=== PATIENT | female | born 1960 | race Caucasian/White ===

== ENCOUNTER → 2016-05-28 | Outpatient (CLI) | payer MEDICARE, MEDICAID ==
[~2016-05-28] MED LIST: ARTIFICIAL TEAR15 ML OPHTH; ATIVAN 1 MG1 MG PO; ATIVAN2 MG PO; CLARITIN10 MG PO; CLOZAPINE50 MG PO; DEPAKOTE DELAY500 MG PO; DILANTIN100 MG PO; DITROPAN DP5 MG/5 ML PO; DULCOLAX10 MG R; EAR DROPS15 ML OTIC; FEOSOL325 MG PO; HEMORRHOIDAL S1 EAC2 R; HYDROCORT TOP; LEVOTHROID (SY50 MCG PO; LINZESS290 MCG PO; MASOPHEN325 MG PO; MILK OF MA400 MG/5 M PO; MIRALAX17 GM PO; MOBIC7.5 MG PO; MOTRIN600 MG PO; NEURONTIN300 MG PO; RESTASIS1 EACH OPHTH; ROBITUSSIN DM120 ML PO; SENOKOT8.6 MG PO; TAB-A-VITE1 EACH PO; TRIPLE ANTIBIOT28 GM TOP; VITAMIN D1000 UNIT PO; [UNRECOGNIZED DRUG - OTHER] SUB-Q
[2016-05-28 08:41] LABS: BASOPHIL % 0.4 %; EOSINOPHIL # 0.2 K/uL (0.0-0.5); EOSINOPHIL % 2.4 %; HEMATOCRIT 37.9 % (33.0-46.0); HEMOGLOBIN 12.9 g/dL (10.0-15.0); IMMATURE GRANULOCYTE # 0.1 K/uL (0.0-0.3); IMMATURE GRANULOCYTE % 0.6 %; LYMPHOCYTE # 3.7 K/uL (0.8-4.0); LYMPHOCYTE % 45.2 %; MCH 34.1 pg (27.0-34.0); MCV 100.3 fl (83.0-98.0); MONOCYTE # 0.7 K/uL (0.0-1.0); MONOCYTE % 8.4 %; MPV 10.5 fl (9.4-12.4); NEUTROPHIL # (ANC) 3.5 K/uL (1.8-7.8); NRBC % 0 /100WBC (0-0.00); PLATELET COUNT 218 K/uL (150-450); RBC 3.78 M/uL (3.50-5.50); RDW-CV 11.3 % (11.9-14.6); WBC 8.1 K/uL (4.0-11.0)
[2016-05-28 09:15] LABS: ALBUMIN 3.2 gm/dL (3.5-5.0); ANION GAP 12.3 (10.0-19.0); CALCIUM 8.3 mg/dL (8.5-10.5); POTASSIUM 4.3 mMol/L (3.7-5.1); TOTAL BILIRUBIN 0.2 mg/dL (0.0-1.5); TOTAL PROTEIN 6.3 g/dL (6.0-8.4)
== END | disposition disaster alternative care site (69) ==
LOC: LBETH 05-27 05:45
PROVIDERS: Nurse Practitioner Psychiatric/Mental Health
DX: Z79.899 Other long term (current) drug therapy (principal); F25.9 Schizoaffective disorder, unspecified

== ENCOUNTER 2016-10-22 13:43 | Emergency (ER) | payer MEDICARE, MEDICAID ==
--- NOTE | ~2016-10-22 | ER ---
PATIENT'S NAME: MICHAEL DESAI [facility] AGE: 56 Y [address] ROOM: [place] [address] LOCATION: ED ADMIT DATE: 10/22/2016 ER/Outpatient Report DISCHARGE DATE: 10/22/2016 FAMILY PHYSICIAN: Quincy Almanza ATTENDING PHYSICIAN: Lavelle Brooks CHIEF COMPLAINT: Not walking and concerns for shunt malfunction. HISTORY OF PRESENT ILLNESS: Ms. Desai has a [employer] shunt that was placed by Dr. Lara last fall. She had been doing well until today when she was not walking. Typically, she walks on her own according to the facility. The nurse who regularly takes care of her felt like the area at their shunt was more swollen today and there were other concerns that her shunt may be malfunctioning. No fever at the facility. She is otherwise doing okay. No antipyretics today. PAST MEDICAL HISTORY: Documented on the record and reviewed by me. SOCIAL HISTORY: Documented on the record and reviewed by me. MEDICATIONS: Documented on the record and reviewed by me. ALLERGIES: DOCUMENTED ON THE RECORD AND REVIEWED BY ME. REVIEW OF SYSTEMS: All systems reviewed and negative except as noted in the HPI. Review of systems was chiefly obtained by collateral information as the patient does not converse. PHYSICAL EXAMINATION: VITAL SIGNS: Blood pressure 128/70, pulse 111, respiratory rate 18, temperature 100.3, SpO2 is 94% on room air. Pain is 0/10. GENERAL: Age appropriate female, recumbent on the exam table, obvious mental delay. No apparent pain or distress. NEUROLOGIC: The patient is awake, she is alert. She regards examiner. She follows commands in all extremities. She does appear a little weak in the lower extremities, but I do not know her baseline. No obvious neuro deficits. HEENT: Normocephalic, atraumatic. Palpation of the shunt reveals a normal shunt bulb. No erythema, induration, or edema. Palpation of the shunt tubing did reveal no fractures. Eyes are PERRL. Oropharynx is clear and moist. PATIENT'S NAME: MICHAEL DESAI [facility] AGE: 56 Y [address] ROOM: [place] [id number] LOCATION: ED ADMIT DATE: 10/22/2016 ER/Outpatient Report DISCHARGE DATE: 10/22/2016 FAMILY PHYSICIAN: Quincy Almanza ATTENDING PHYSICIAN: Lavelle Brooks NECK: Supple. Trachea is midline. CHEST/HEART: Regular rate and rhythm on my exam. Borderline tachycardia. No murmurs. LUNGS: Clear to auscultation bilaterally. No rhonchi, wheezes, or rales. ABDOMEN: Soft, nontender, and nondistended. No rebound or guarding. BACK: Normal to inspection and palpation. There is no spinal or paraspinal tenderness. No CVA tenderness. EXTREMITIES: Warm, well formed, and well perfused with no obvious abnormalities. The patient was able to ambulate approximately 100 feet with no difficulty on her own. SKIN: Without significant breakdown. Some excoriation in the perineum. LABORATORY DATA AND X-RAYS: Head CT is unchanged per Radiology. Shunt series is unremarkable per my review. Chest x-ray with no infiltrates. Labs: Urinalysis without evidence of infection on cath specimen. CMS with no electrolyte abnormalities. No renal abnormalities. No appreciable hepatobiliary abnormalities. CBC is notable for a white count of 16.9 with 12.5 neutrophils, 2.6 lymphocytes, 1.7 monocytes. Hemoglobin is 12.5, platelets of 206. IMPRESSION: 1. Borderline fever. 2. Leukocytosis, nonspecific. EMERGENCY DEPARTMENT COURSE: The patient was seen and evaluated today. She did have borderline fever and thus urine was obtained as well. I do not see any clear source of infection at this time. She does not have an abdominal exam concerning. There is no evidence of meningismus. No evidence of oropharyngeal infection. No elicitable pain on exam. No significant skin breakdown. Pneumonia is excluded by chest x-ray, and urinalysis not consistent with infection, not consistent with meningismus. Unclear etiology for leukocytosis. The patient technically not febrile. I did speak with Dr. Lara, neurosurgeon. At this time, I believe it is safe for the patient to be discharged back to [facility]. Pay close attention to the patient's clinical course and vital signs. If persistent increase in temperature or other concerning symptoms, they should return. On discharge, the patient was afebrile at 98.1 with no interventions otherwise. All questions were answered to the best of my ability, and the patient was discharged back to [facility] in stable condition. PATIENT'S NAME: MICHAEL DESAI [facility] AGE: 56 Y [address] ROOM: [place] [address] LOCATION: [facility] ADMIT DATE: 10/22/2016 ER/Outpatient Report DISCHARGE DATE: 10/22/2016 FAMILY PHYSICIAN: Quincy Almanza ATTENDING PHYSICIAN: Lavelle rBooks MD JH/lm /[id number] d: t: 10/23/16 0005, OUTPATIENT REPORT
[2016-10-22 15:10] LABS: BASOPHIL % 0.2 %; EOSINOPHIL % 0.2 %; HEMATOCRIT 35.8 % (33.0-46.0); HEMOGLOBIN 12.5 g/dL (10.0-15.0); IMMATURE GRANULOCYTE # 0.1 K/uL (0.0-0.3); IMMATURE GRANULOCYTE % 0.4 %; LYMPHOCYTE # 2.6 K/uL (0.8-4.0); LYMPHOCYTE % 15.2 %; MCH 35.3 pg (27.0-34.0); MCHC 34.9 gm/dL (32.0-36.5); MCV 101.1 fl (83.0-98.0); MONOCYTE # 1.7 K/uL (0.0-1.0); MONOCYTE % 9.9 %; MPV 10.1 fl (9.4-12.4); NEUTROPHIL # (ANC) 12.5 K/uL (1.8-7.8); NEUTROPHIL % 74.1 %; NRBC % 0 /100WBC (0-0.00); PLATELET COUNT 206 K/uL (150-450); RBC 3.54 M/uL (3.50-5.50); RDW-CV 11.9 % (11.9-14.6); WBC 16.9 K/uL (4.0-11.0)
[2016-10-22 15:26] LABS: ALBUMIN 3.2 gm/dL (3.5-5.0); ANION GAP 10.9 (10.0-19.0); CALCIUM 8.4 mg/dL (8.5-10.5); CREATININE 0.9 mg/dL (0.5-1.1); POTASSIUM 3.9 mMol/L (3.7-5.1); TOTAL BILIRUBIN 0.3 mg/dL (0.0-1.5); TOTAL PROTEIN 6.8 g/dL (6.0-8.4)
[2016-10-22 16:10] LABS: BILIRUBIN URINE NEGATIVE (NEGATIVE); BLOOD URINE 25 /UL (NEGATIVE); COLOR URINE COLORLESS (YELLOW); GLUCOSE URINE NEGATIVE (NEGATIVE); KETONE URINE NEGATIVE (NEGATIVE); LEUKOCYTES URINE NEGATIVE /UL (NEGATIVE); NITRITE URINE NEGATIVE (NEGATIVE); PROTEIN URINE NEGATIVE (NEGATIVE); SPEC GRAVITY URINE 1.015 (1.003-1.035); TURBIDITY URINE CLEAR (CLEAR); UROBILINOGEN URINE NORMAL (NORMAL)
[2016-10-22 16:45] LABS: BACTERIA URINE NEGATIVE (NEGATIVE)
== END 2016-10-22 18:15 | disposition disaster alternative care site (69) ==
LOC: GMED 13:43
PROVIDERS: Emergency Medicine
DX: R50.9 Fever, unspecified (principal); D72.829 Elevated white blood cell count, unspecified; E03.9 Hypothyroidism, unspecified; F84.0 Autistic disorder; F31.9 Bipolar disorder, unspecified; Z98.2 Presence of cerebrospinal fluid drainage device; Z88.8 Allergy status to other drugs, medicaments and biological substances; Z79.82 Long term (current) use of aspirin; Z79.1 Long term (current) use of non-steroidal anti-inflammatories (NSAID); Z79.891 Long term (current) use of opiate analgesic; Z79.899 Other long term (current) drug therapy